=== PATIENT | female | born 1950 | race Caucasian/White ===

== ENCOUNTER 2016-10-07 07:00 | Inpatient (IN) | payer OTHER ==
[~2016-10-07] VITALS: Ht 162.6 cm; Wt 92.5 kg
[2016-10-11] VITALS (24 sets, daily range): BP systolic 105–142; BP diastolic 55–83; PULSE 56–82; RESP 13–25; Ht 162.6 cm; Wt 92.5 kg
[2016-10-11] MEDS ORDERED: TRAZ50TA18 PO (06:11)
[2016-10-11] MEDS ORDERED: SIMV40TA7 PO (06:11)
[2016-10-11] MEDS ORDERED: DOXY50TA9 PO (06:11)
[2016-10-11] MEDS ORDERED: GABA300C16 PO (06:11)
[2016-10-11] MEDS ORDERED: BISO1TAB PO (06:11)
[2016-10-11] MEDS ORDERED: CEFAZOLIN 2 GM/50 ML (PMX) 50 ML IVPB SCH (06:31)
[2016-10-11] MEDS ORDERED: BUPIVACAINE 0.25% (MPF) 10 ML 10 ML VIAL ONE (06:37)
[2016-10-11] MEDS ORDERED: GELATIN SIZE 100 SPONGE ONE (06:37)
[2016-10-11] MEDS ORDERED: POLYMYXIN/BACITRACIN 1L IRRIG ONE (06:38)
[2016-10-11 06:41] LABS: INR 0.91; PARTIAL THROMBOPLASTIN TIME 29.9 Sec (25.0-35.0); PROTIME 12.3 Sec (12.2-14.2)
--- NOTE | 2016-10-11 06:53 | HPN ---
Date/Time of Note Date/Time of Note DATE: 10/11/16 TIME: 06:53 Interval H&P Admission Note Pt. seen H&P reviewed: No system changes TED OLMEDO MD Oct 11, 2016 06:53
[2016-10-11] MEDS ORDERED: FENTAnyl 50 MCG/ML VIAL ONE ×2 (06:55→07:44)
[2016-10-11] MEDS ORDERED: SUCCINYLCHOLINE CHLORIDE 100 MG/5 ML SYG IV ONE (06:55)
[2016-10-11] MEDS ORDERED: MIDAZOLAM 1 MG/ML 2 ML INJ ONE (06:55)
[2016-10-11] MEDS ORDERED: PROPOFOL 100 ML ONE (06:55)
[2016-10-11] MEDS ORDERED: ROCURONIUM 50 MG INJ ONE ×2 (06:55→08:44)
[2016-10-11] MEDS ORDERED: ONDANSETRON 4 MG INJ IV PRN (08:00)
[2016-10-11] MEDS ORDERED: hydrALAzine 20 MG INJ IV PRN (08:00)
[2016-10-11] MEDS ORDERED: METOCLOPRAMIDE 10 MG INJ IV PRN (08:00)
[2016-10-11] MEDS ORDERED: MEPERIDINE 25 MG INJ IV PRN (08:00)
[2016-10-11] MEDS ORDERED: FENTAnyl 50 MCG/ML VIAL IV PRN ×3 (08:00)
[2016-10-11] MEDS ORDERED: HYDROmorphONE (0.2 MG/ML) 10ML SYG IV PRN ×2 (08:00)
[2016-10-11] MEDS ORDERED: LABETALOL HCL 20MG INJ IV PRN (08:00)
[2016-10-11] MEDS ORDERED: ALBUMIN HUMAN 5% 250 ML IV PRN (08:00)
[2016-10-11] MEDS ORDERED: EPHEDrine SULFATE 50 MG/5 ML SYG IV PRN (08:00)
[2016-10-11] MEDS ORDERED: morphine (1 MG/ML) 10ML SYRINGE IV PRN ×3 (08:00)
[2016-10-11] MEDS ORDERED: DIPHENHYDRAMINE 50 MG INJ IV PRN (08:00)
[2016-10-11] MEDS: THROMBIN 5000 UNIT VIAL ONE ×2 (08:04→08:51)
[2016-10-11] MEDS ORDERED: ONDANSETRON 4 MG INJ ONE (08:44)
[2016-10-11] MEDS ORDERED: METOCLOPRAMIDE 10 MG INJ ONE (08:44)
[2016-10-11] MEDS ORDERED: ACETAMINOPHEN 1000MG/100ML IV 100 ML ONE (08:44)
[2016-10-11] MEDS ORDERED: PROPOFOL 40 ML ONE (08:45)
[2016-10-11] MEDS ORDERED: DEXAMETHASONE 4 MG/ML 1 ML INJ ONE (08:45)
[2016-10-11] MEDS ORDERED: EPHEDrine SULFATE 50 MG/5 ML SYG ONE (08:54)
[2016-10-11] MEDS ORDERED: SUGAMMADEX SODIUM 200 MG/2 ML VIAL IV ONE (09:53)
[2016-10-11] MEDS ORDERED: HYDROmorphONE 0.2 MG/ML PCA ONE (10:11)
[2016-10-11] MEDS: HYDROmorphONE (0.2 MG/ML) 10ML SYG IV PRN ×3 (10:12→10:32)
--- NOTE | 2016-10-11 10:27 | OPR ---
Date/Time of Note Date/Time of Note DATE: 10/11/16 TIME: 10:25 Operative Report Preoperative Diagnosis Lumbar spinal stenosis at L2-L3 and L4 Postoperative Diagnosis Same Operation/Procedure Performed Central decompressive laminectomy at L2, L3, L4, and the upper part of L5. Surgeon: TED OLMEDO MD payroll human resources assistant: ELOY MARTIN Anesthesia Type: general Estimated Blood Loss: 100 - 150 ml's Transfusion Required: no Specimens Spinous processes of L2-L3 and L4 Grafts/Implants: none Complications: no TED OLMEDO MD Oct 11, 2016 10:27
[2016-10-11] MEDS ORDERED: HYDROCODONE/APAP (5/325) TAB PO PRN ×2 (10:30)
[2016-10-11] MEDS ORDERED: HYDROmorphONE 0.2 MG/ML PCA IV SCH (10:30)
[2016-10-11] MEDS ORDERED: DIPHENHYDRAMINE 50 MG CAP PO PRN (10:30)
[2016-10-11] MEDS ORDERED: ACETAMINOPHEN 325 MG TAB PO PRN (10:30)
[2016-10-11] MEDS ORDERED: NALOXONE (0.4 MG/ML) INJ IV PRN (10:30)
[2016-10-11] MEDS ORDERED: DIAZEPAM 5 MG TAB PO PRN (10:30)
[2016-10-11] MEDS ORDERED: AL HYDROX/MG HYDROX/SIMETH 30 ML CUP PO PRN (10:30)
[2016-10-11] MEDS ORDERED: PROCHLORPERAZINE 10 MG TAB PO PRN (10:30)
[2016-10-11] MEDS ORDERED: NACL 0.9% 3 ML SYG IV SCH (10:30)
[2016-10-11] MEDS ORDERED: CEPASTAT LOZENGE MT PRN (10:30)
[2016-10-11] MEDS ORDERED: ZOLPIDEM 5 MG TAB PO PRN (10:30)
[2016-10-11] MEDS ORDERED: BETHANECHOL 25 MG TAB PO PRN (10:30)
[2016-10-11] MEDS ORDERED: DIAZEPAM 5 MG/ML SYG IM PRN (10:30)
--- NOTE | 2016-10-11 11:22 | OPR ---
DATE OF OPERATION: 10/11/2016 PREOPERATIVE DIAGNOSIS: Lumbar spinal stenosis at L2, L3 and L4. POSTOPERATIVE DIAGNOSIS: Lumbar spinal stenosis at L2, L3 and L4. OPERATIVE PROCEDURE: 1. Central decompressive laminectomy at L2. 2. Central decompressive laminectomy at L3. 3. Central decompressive laminectomy at L4. 4. Partial central decompressive laminectomy at L5 (superiorly). 5. Medial facetectomy and foraminotomy at L2-3, L3-4, L4-5 bilaterally. 6. Cosmetic wound closure (16 cm). 7. Lateral localized lumbar radiographs (2). 8. Intraoperative nerve monitoring (2.5 hours). SURGEON: Rigo Doe MD INDUSTRIAL LABORER: Akanksha Siegel PA-C ANESTHESIA: General endotracheal by Dr. Fisher. ESTIMATED BLOOD LOSS: 150 mL - none replaced. DRAINS: Two medium Hemovac drains employed. COMPLICATIONS: No complications. PERTINENT HISTORY AND PHYSICAL: This is a 66-year-old female who sustained an injury to her back in the course of her employment on 05/23/2015. She had extensive care since that time and has remained symptomatic with persistent back and lower extremity complaints bilaterally, right greater than left, which have been unrelieved by conservative management. She has undergone a number of diagnostic studies including an MRI of the lumbar spine which demonstrated marked canal stenosis at L2, L3 and L4. Treatment options were discussed with the patient, she elected to go with surgery. OPERATIVE FINDINGS AT SURGERY: Moderately severe central stenosis at L2, L3 and L4 was confirmed. The baseline intraoperative nerve monitor revealed a decrease in the L2 potential on the right of 30 percent, the L3 potential on the right of 50 percent, the L3 potential on the left of 20 percent, the L4 potential on the right of 40 percent. These all returned to normal at the completion of the surgery. OPERATIVE PROCEDURE: With the patient in supine position, after satisfactory induction of general endotracheal anesthesia by Dr. Fisher, the patient was turned to the prone kneeling position onto the [place] frame. All pressure points were carefully padded. The back was prepped and draped in usual sterile fashion. Athrombic pumps were applied to the legs below the knees for venous stasis during and after the procedure. An indwelling Garner catheter was also placed preoperative to facilitate bladder drainage during and after the procedure. Two spinal needles were placed next to the L2 and L4 spinous processes, lateral radiograph were taken which confirmed anatomic localization. A 16 cm incision was made from L2 to L5 through skin and subcutaneous tissue to the deep fascia after the skin was infiltrated with 0.25 percent Marcaine without epinephrine for postoperative analgesia. Superficial retractors were placed and hemostasis was achieved with electrocautery. Throughout the procedure, copious amounts of antibacterial irrigating solution was used to periodically irrigate the wound. The fascia was incised in midline with a hot knife and a bilateral subperiosteal dissection carried out from L2 to L5. Deep retractors were placed and deep hemostasis secured with electrocautery. A second intraoperative radiograph was taken with Lois clamps placed and was felt to be the spinous process of L3, L4, and L5 and this was confirmed with a second x-ray. A central decompressive laminectomy at L2, L3 and L4 was then carried out using a Irina right angle bone rongeur, Leksell rongeur, Kerrison punches and curettes. Ligamentum flavum was excised with sharp dissection. The operating microscope was then moved into place. A medial facetectomy and foraminotomy at L2-3 L3-4 and L4-5 was carried out using a small hand osteotome and mallet, Kerrison punches and curettes. At this point, there was felt to be some compression of the dural sac and the exiting L5 nerve roots, and the upper part of L5 was then removed using Kerrison punches and curettes. The epidural hemostasis was secured with bipolar electrocautery on a low setting. The anesthesiologist was then asked to perform a Valsalva maneuver to 40 mmHg and no spinal fluid leak was noted. The wound was then closed in layers over 2 medium Hemovac drains, 1 below the fascia and 1 above the fascia using number 1 Stratafix sutures on deep paraspinal musculature and deep fascia of the back, 2-0 Stratafix sutures in subcu tissue and a 4-0 Vicryl subcuticular cosmetic closing suture on the skin. Dermabond and sterile compressive dressings were applied. The patient tolerated the procedure well. She was then turned onto the supine position onto her bed and extubated by Dr. Fisher. She was transported to the recovery room in satisfactory condition. At the conclusion of the procedure, sponge, instrument and needle counts were all correct. NEED FOR INFORMATION SERVICES ASSISTANT: During this spinal surgical procedure, my assistant professor of geography was used to retract and protect the spinal nerves and dural sac. My assistant professor of geography also employed the suction catheters to evacuate blood from the surgical field to improve visualization of the neural structures. The assistant professor of geography was medically necessary to facilitate the completion of the surgery in a safe and expeditious manner. [facility] [place] regulations, as well as hospital bylaws, preclude the use of non- licensed health care personnel such as operating room technicians, to perform these functions. Throughout the procedure, neuro monitoring was carried out by [employer] including EMG, SSEP and MEP monitoring of the L2, L3, L4, L5 and S1 nerve roots bilaterally, along with spinal cord potentials. These were interpreted by a neurologist employed by [employer]. Dictated By: Rigo Doe MD /rosalina/maria /Document#: [id number] CC: Pb Crawford MD;*EndCC* MTDD
[2016-10-11] MEDS: DEXTROSE 5%-0.45% NACL 1,000 ML IV SCH ×2 (11:33→22:16)
[2016-10-11] MEDS: CEFAZOLIN 1 GM/50 ML (PMX) 50 ML IVPB SCH ×3 (12:27→23:54)
[2016-10-11] MEDS ORDERED: BISOPROLOL PO SCH (12:30)
[2016-10-11] MEDS ORDERED: HCTZ PO SCH (12:30)
[2016-10-11] MEDS ORDERED: BISOPROLOL 5 MG TAB PO SCH (15:00)
[2016-10-11] MEDS ORDERED: HYDROCHLOROTHIAZIDE 12.5 MG CAP PO SCH (15:00)
--- NOTE | 2016-10-11 15:34 | RADRPT ---
PROCEDURE: XR Lumbar Spine one view. CLINICAL INDICATION: Low back pain. Intraoperative. TECHNIQUE: Prone portable cross-table lateral. COMPARISON: No prior studies are available for comparison. FINDINGS: For the purposes of this report, the last apparent true disc level is considered to be L5-S1. Based on this, the posterior markers are present the L3 spinous process level and L5 spinous proces s level. IMPRESSION: 1. Intraoperative imaging as described above. RPTAT: QQ .Bear Neal MD, Date Time Electronically viewed and signed by .Bear Neal MD, on 10/11/2016 15:33 .R/
--- NOTE | 2016-10-11 15:35 | RADRPT ---
PROCEDURE: XR Lumbar Spine one view. CLINICAL INDICATION: Low back pain. Intraoperative. TECHNIQUE: Prone portable cross-table lateral. COMPARISON: Prior study done earlier the same day. FINDINGS: For the purposes of this report, the last apparent true disc level is considered to be L5-S1. Based on this, the posterior surgical instruments are present at the L3, L4, and L5 spinous process level s. IMPRESSION: 1. Intraoperative imaging as described above. RPTAT: QQ .Bear Neal MD, Date Time Electronically viewed and signed by .Bear Neal MD, on 10/11/2016 15:34 .R/
[2016-10-11] MEDS ORDERED: SPECIAL NON-STANDARD MEDICATION PO SCH (16:00)
[2016-10-11] MEDS: ONDANSETRON 4 MG INJ IV PRN ×2 (16:53→23:02)
[2016-10-11] MEDS: TRIMETHOBENZAMIDE 100 MG/ML VIAL IM PRN (19:20)
--- NOTE | 2016-10-11 19:48 | CONS ---
DATE OF ADMISSION: 10/11/2016 DATE OF CONSULTATION: 10/11/[address] Doe for allowing us to participate in the medical management of this patient. REASON FOR CONSULTATION: To manage the patient's hypertension, hyperlipidemia. HISTORY OF PRESENT ILLNESS: This 66-year-old female is now postop a lumbar spine surgery by Dr. Doe. The patient underwent a central decompressive laminectomy at L2, L3, and L4 with partial central decompressive laminectomy at L5. The patient had a preop diagnosis of lumbar spine stenosis. The patient said that she was having low back pain which was radiating mostly down her right leg. She had developed a foot drop and she had fallen several times. She also had some pain going down the left leg. The patient was seen preoperatively by Dr. Laura Gould, one of my partners. She was cleared by Dr. Gould. He has a detailed note on her chart. PAST MEDICAL HISTORY: The patient has a past medical history of hypertension, hyperlipidemia, rosacea, and spinal stenosis. PRE-SURGICAL HISTORY: Left meniscus repair, left ankle tendon repair, right rotator cuff repair, hysterectomy, oophorectomy. MEDICATION: Medications include the followin. Gabapentin 300 mg at night. 2. Trazodone 50 mg at bedtime. 3. Simvastatin 40 mg a day. 4. Bisoprolol/hydrochlorothiazide 2.5/6.25 mg once nightly, doxycycline 50 mg a day. ALLERGIES: PENICILLIN. FAMILY HISTORY: Father age 91. Mother age 48. Mother with a pulmonary embolism. SOCIAL HISTORY: The patient does not smoke. Does not use illicit drugs. Rarely drinks alcohol. PHYSICAL EXAMINATION: Physical examination at this time reveals a well-developed female in no apparent distress. She is awake and alert. VITAL SIGNS: Blood pressure 134/62, O2 saturation 97 percent. Pulse of 67. HEENT: Head normocephalic. Eyes, extraocular muscles intact. Nose and mouth are normal. NECK: Supple. No neck vein distention. LUNGS: Clear to auscultation. HEART: Regular rhythm. There is a 2/6 systolic ejection murmur. The patient says she has known of the heart murmur previously. ABDOMEN: Soft, nontender. No masses or megaly. EXTREMITIES: No peripheral edema. IMPRESSION: This patient is now postop a lumbar spine surgery. She is doing well. Her blood pressure is under good control. I will manage the patient's hypertension, hyperlipidemia, rosacea. PLAN: 1. Resume routine medications. 2. Check labs in the morning. 3. Postop lumbar spine surgery protocol. 4. I will follow the patient along with you. Dictated By: Pb Crawford MD /rosalina/julian /Document#: [id number]
[2016-10-11] MEDS: traZODone 50 MG TAB PO SCH (21:00)
[2016-10-11] MEDS: BISOPROLOL PO SCH (21:04)
[2016-10-11] MEDS: GABAPENTIN 300 MG CAP PO SCH (21:04)
[2016-10-11] MEDS: ATORVASTATIN 20 MG TAB PO SCH (21:04)
[2016-10-11] MEDS: RANITIDINE 150 MG TAB PO SCH (21:04)
[2016-10-11] MEDS: HCTZ PO SCH (21:04)
[2016-10-12 00:07] VITALS: BP 126/74; RESP 18
[2016-10-12] MEDS: ONDANSETRON 4 MG INJ IV PRN (05:02)
[2016-10-12 05:10] VITALS: BP 129/58; PULSE 55; RESP 20
[2016-10-12 05:14] LABS: ABNORMAL IP MESSAGE 1; BASOPHILS % 0.1 % (0.0-2.0); HEMATOCRIT 36.4 % (37.0-47.0); HEMOGLOBIN 12.3 g/dl (12.0-16.0); LYMPHOCYTES # 1.6 10^3/ul (0.8-2.9); LYMPHOCYTES % 6.7 % (15.0-51.0); MEAN CORPUSCULAR HEMOGLOBIN 29.1 pg (29.0-33.0); MEAN CORPUSCULAR HGB CONC 33.8 g/dl (32.0-37.0); MEAN CORPUSCULAR VOLUME 86.1 fl (82.0-101.0); MEAN PLATELET VOLUME 10.2 fl (7.4-10.4); MONOCYTES % 8.4 % (0.0-11.0); NEUTROPHILS % 83.8 % (39.0-77.0); PLATELET COUNT 302 10^3/UL (140-415); RED BLOOD COUNT 4.23 10^6/ul (4.20-5.40); RED CELL DISTRIBUTION WIDTH 13.9 % (11.5-14.5); WHITE BLOOD COUNT 24.1 10^3/ul (4.8-10.8)
[2016-10-12 05:20] LABS: POSITIVE DIFF @See below
[2016-10-12 05:41] LABS: ALBUMIN 3.4 g/dl (3.3-4.9); ALBUMIN/GLOBULIN RATIO 1.47; BILIRUBIN,INDIRECT 0.3 mg/dl (0-1.1); BILIRUBIN,TOTAL 0.3 mg/dl (0.2-1.3); CALCIUM 8.9 mg/dl (8.4-10.2); CREATININE 0.67 mg/dl (0.44-1.00); POTASSIUM 4.1 mmol/L (3.5-5.1); TOTAL PROTEIN 5.7 g/dl (6.1-8.1)
[2016-10-12] MEDS: CEFAZOLIN 1 GM/50 ML (PMX) 50 ML IVPB SCH (06:07)
--- NOTE | 2016-10-12 07:12 | PN ---
Date/Time of Note Date/Time of Note DATE: 10/12/16 TIME: 07:10 Assessment/Plan Lines/Catheters IV Catheter Type (from Nrsg): Peripheral IV Garner in Place (from Nrsg): Yes Subjective 24 Hr Interval Summary The patient is postop day #1 following a multilevel decompressive laminectomy from L2 through L4. She had significant nausea and vomiting last night from the INSTRUCTIONAL MATERIALS DIRECTOR and has elected not to use any pain medication at this time. Neurovascular structures are intact distally. Her Hemovac output was 40 cc from midnight to 6 AM, and will be observed at this time. She will be mobilized as tolerated by physical therapy. Her a.m. labs demonstrated a hyponatremia (131), and a significantly elevated white blood cell count (24). I will defer to Dr. Hughes regarding the management of her hyponatremia and leukocytosis. Exam/Review of Systems Vital Signs Vitals Vital Signs Date Time Temp Pulse Resp B/P Pulse Ox O2 Delivery O2 Flow Rate FiO2 10/12/16 05:10 19 10/12/16 05:10 98.8 55 129/58 97 Nasal Cannula 2.0 Intake and Output 10/11/16 10/11/16 10/12/16 15:00 23:00 07:00 Intake Total 1950 ml 1550 ml 750 ml Output Total 410 ml 720 ml 40 ml Balance 1540 ml 830 ml 710 ml Results Result Diagram: 10/12/16 0444 10/12/16 0444 TED OLMEDO MD Oct 12, 2016 07:11
[2016-10-12 07:51] VITALS: BP 143/68; RESP 18
[2016-10-12] MEDS ORDERED: BETHANECHOL 25 MG TAB PO PRN (08:00)
--- NOTE | 2016-10-12 08:09 | CONS ---
Date/Time of Note Date/Time of Note DATE: 10/12/16 TIME: 08:07 Assessment/Plan Assessment/Plan Chief Complaint/Hosp Course 1. She is 1 day postop a lumbar spine surgery. 2. Nausea and vomiting due to Dilaudid pain medication. 3. White blood count of 24,000 which is probably elevated because of dexamethasone that she received during surgery. She has no obvious evidence of infection. 4. We will check labs in the morning. 5. Continue current medication. Physical therapy as tolerated. Problems: Consultation Date/Type/Reason Admit Date/Time Oct 11, 2016 at 05:12 Initial Consult Date 24 HR Interval Summary Free Text/Dictation She is having some nausea with vomiting. She thinks it is due to the Dilaudid she is getting through the BUTTON TUFTING MACHINE OPERATOR for pain. She denies cough. Exam/Review of Systems Vital Signs Vitals Vital Signs Date Time Temp Pulse Resp B/P Pulse Ox O2 Delivery O2 Flow Rate FiO2 10/12/16 07:51 98.9 66 18 143/68 98 10/12/16 05:10 Nasal Cannula 2.0 Intake and Output 10/11/16 10/11/16 10/12/16 15:00 23:00 07:00 Intake Total 1950 ml 1550 ml 1050 ml Output Total 410 ml 720 ml 2150 ml Balance 1540 ml 830 ml -1100 ml Exam Constitutional: alert, oriented, well developed Respiratory: clear to auscultation, normal air movement Cardiovascular: regular rate and rhythm Gastrointestinal: non-tender, soft Musculoskeletal: nl extremities to inspection Results Result Diagram: 10/12/16 0444 10/12/16 0444 Results 24 hrs Laboratory Tests Test 10/12/16 04:44 White Blood Count 24.1 H Red Blood Count 4.23 Hemoglobin 12.3 Hematocrit 36.4 L Mean Corpuscular Volume 86.1 Mean Corpuscular Hemoglobin 29.1 Mean Corpuscular Hemoglobin Concent 33.8 Red Cell Distribution Width 13.9 Platelet Count 302 Mean Platelet Volume 10.2 Neutrophils % 83.8 H Lymphocytes % 6.7 L Monocytes % 8.4 Eosinophils % 0.0 Basophils % 0.1 Nucleated Red Blood Cells % 0.0 Neutrophils # (Manual) 20 H Lymphocytes # 1.6 Monocytes # 2.0 H Eosinophils # 0.0 Basophils # 0.0 Nucleated Red Blood Cells # 0.0 Sodium Level 131 L Potassium Level 4.1 Chloride Level 96 L Carbon Dioxide Level 27 Anion Gap 12 Blood Urea Nitrogen 12 Creatinine 0.67 Glucose Level 152 Calcium Level 8.9 Total Bilirubin 0.3 Direct Bilirubin 0.00 Indirect Bilirubin 0.3 Aspartate Amino Transf (AST/SGOT) 25 Alanine Aminotransferase (ALT/SGPT) 35 Alkaline Phosphatase 66 Total Protein 5.7 L Albumin 3.4 Globulin 2.30 Albumin/Globulin Ratio 1.47 Medications Medications Current Medications Dextrose/Sodium Chloride (D5-1/2ns) 1,000 ml @ 100 mls/hr Q10H IV Last administered on 10/11/16 22:16; Admin Dose 100 MLS/HR; Start 10/11/16 at 10:20 Acetaminophen/ Hydrocodone Bitart ([place] (5/325)) 1 tab Q4H PRN PO PAIN LEVEL 1 -5; Start 10/11/16 at 10:30; Status Future Hold Acetaminophen/ Hydrocodone Bitart ([place] (5/325)) 2 tab Q4H PRN PO PAIN LEVEL 6 -10; Start 10/11/16 at 10:30; Status Future Hold Zolpidem Tartrate (Ambien) 5 mg HS PRN PO INSOMNIA; Start 10/11/16 at 10:30 Prochlorperazine (Compazine) 10 mg Q4H PRN PO NAUSEA AND/OR VOMITING; Start at 10:30 Trimethobenzamide HCl (Tigan) 200 mg Q4H PRN IM NAUSEA AND/OR VOMITING Last administered on 10/11/16 19:20; Admin Dose 200 MG; Start 10/11/16 at 10:30 Ondansetron HCl (Zofran Inj) 4 mg Q6H PRN IV NAUSEA AND/OR VOMITING Last administered on 10/12/16 05:02; Admin Dose 4 MG; Start 10/11/16 at 10:30 Al Hydrox/Mg Hydrox/Simethicone (Mag-Al Plus) 15 ml Q4H PRN PO CONSTIPATION; Start 10/11/16 at 10:30 Docusate Sodium (Colace) 100 mg BID PO ; Start 10/12/16 at 09:00 Acetaminophen (Tylenol Tab) 650 mg Q4H PRN PO TEMP GREATER THAN 101F OR SZYMANSKI; Start 10/11/16 at 10:30 Ascorbic Acid (Vitamin C) 1,000 mg BID PO ; Start 10/12/16 at 09:00 Ferrous Sulfate (Ferrous Sulfate (Ec)) 325 mg TID PO ; Start 10/12/16 at 09:00 Ranitidine HCl (Zantac) 150 mg BID PO Last administered on 10/11/16 21:04; Admin Dose 150 MG; Start 10/11/16 at 21:00 Diazepam (Valium) 5 mg Q4H PRN PO MUSCLE SPASMS; Start 10/11/16 at 10:30 Diazepam (Valium) 5 mg Q4H PRN IM MUSCLE SPASMS; Start 10/11/16 at 10:30 Phenol (Cepastat Lozenge) 1 lozenge PRN PRN MT SORE THROAT; Start 10/11/16 at 10:30 Bethanechol Chloride (Urecholine) 25 mg PRN PRN PO UNABLE TO VOID; Start at 10:30 Diphenhydramine HCl (Benadryl) 50 mg Q6H PRN PO PRURITUS; Start 10/11/16 at 10: 30 Hydromorphone HCl (Dilaudid BUTTON TUFTING MACHINE OPERATOR) Q4PCA IV Last administered on 10/11/16 10:38 ; Admin Dose 6 MG; Start 10/11/16 at 10:30 Naloxone HCl (Narcan) 0.2 mg Q2M PRN IV RR 8 BREATHS/MIN OR LESS; Start at 10:30 Gabapentin (Neurontin) 300 mg HS PO Last administered on 10/11/16 21:04; Admin Dose 300 MG; Start 10/11/16 at 21:00 Trazodone HCl (Desyrel) 50 mg QHS PO ; Start 10/11/16 at 21:00 Doxycycline Hyclate (Vibramycin) 50 mg DAILY PO ; Start 10/12/16 at 09:00 Atorvastatin Calcium (Lipitor) 20 mg DAILY@21 PO Last administered on 21:04; Admin Dose 20 MG; Start 10/11/16 at 21:00 Bisoprolol Fumarate/HCTZ (Ziac (2.5/6.25)) 1 tab DAILY PO Last administered on 10/11/16 21:04; Admin Dose 1 TAB; Start 10/11/16 at 19:30 Bethanechol Chloride (Urecholine) 25 mg PRN PRN PO UNABLE TO VOID; Start at 08:00 MITCHELL WALLS MD Oct 12, 2016 08:09
[2016-10-12] MEDS: DEXTROSE 5%-0.45% NACL 1,000 ML IV SCH ×2 (08:25→15:57)
[2016-10-12] MEDS: ASCORBIC ACID 500 MG TAB PO SCH ×2 (08:29→20:26)
[2016-10-12] MEDS: FERROUS SULFATE (EC) 325 MG TAB PO SCH ×3 (08:29→20:26)
[2016-10-12] MEDS: DOCUSATE SODIUM 100 MG CAP PO SCH ×2 (08:29→20:25)
[2016-10-12] MEDS: DOXYCYCLINE 100 MG TAB PO SCH (08:30)
[2016-10-12] MEDS: RANITIDINE 150 MG TAB PO SCH ×2 (08:30→20:26)
[2016-10-12] MEDS: BISOPROLOL PO SCH (08:31)
[2016-10-12] MEDS: HCTZ PO SCH (08:31)
[2016-10-12 11:22] LABS: ADD UMIC NO; UR ASCORBIC ACID NEGATIVE (NEGATIVE); UR BILIRUBIN (Dip) NEGATIVE (NEGATIVE); UR BLOOD (Dip) NEGATIVE (NEGATIVE); UR CLARITY SLIGHTLY CLOUDY (CLEAR); UR COLOR YELLOW (YELLOW); UR GLUCOSE (Dip) NEGATIVE (NEGATIVE); UR KETONES (Dip) NEGATIVE (NEGATIVE); UR LEUKOCYTE ESTERASE (Dip) NEGATIVE Leu/ul (NEGATIVE); UR MUCUS FEW /HPF (NONE SEEN); UR NITRITE (Dip) NEGATIVE (NEGATIVE); UR RBC 3 /HPF (0-5); UR TOTAL PROTEIN (Dip) NEGATIVE (NEGATIVE); UR UROBILINOGEN (Dip) NEGATIVE (NEGATIVE)
[2016-10-12] MEDS: OXYCODONE/ACETAMINOPHEN (5/325) TAB PO PRN ×2 (13:58→18:17)
[2016-10-12 14:00] VITALS: BP 115/54; RESP 20
[2016-10-12 20:16] VITALS: BP 117/56; RESP 18
[2016-10-12] MEDS: GABAPENTIN 300 MG CAP PO SCH (20:26)
[2016-10-12] MEDS: ATORVASTATIN 20 MG TAB PO SCH (20:26)
[2016-10-12] MEDS: traZODone 50 MG TAB PO SCH (20:26)
[2016-10-12] MEDS: OXYCODONE/ACETAMINOPHEN (10/325) TAB PO PRN (23:11)
[2016-10-13] MEDS: DEXTROSE 5%-0.45% NACL 1,000 ML IV SCH ×3 (02:20→22:20)
[2016-10-13] MEDS: OXYCODONE/ACETAMINOPHEN (10/325) TAB PO PRN (04:26)
[2016-10-13 05:23] LABS: ABNORMAL IP MESSAGE 1; BASOPHILS % 0.2 % (0.0-2.0); EOSINOPHILS % 0.3 % (0.0-7.0); HEMATOCRIT 38.6 % (37.0-47.0); HEMOGLOBIN 12.2 g/dl (12.0-16.0); LYMPHOCYTES # 2.8 10^3/ul (0.8-2.9); LYMPHOCYTES % 17.5 % (15.0-51.0); MEAN CORPUSCULAR HEMOGLOBIN 27.5 pg (29.0-33.0); MEAN CORPUSCULAR HGB CONC 31.6 g/dl (32.0-37.0); MEAN CORPUSCULAR VOLUME 86.9 fl (82.0-101.0); MEAN PLATELET VOLUME 10.3 fl (7.4-10.4); MONOCYTES % 12.8 % (0.0-11.0); NEUTROPHILS % 68.4 % (39.0-77.0); PLATELET COUNT 265 10^3/UL (140-415); RED BLOOD COUNT 4.44 10^6/ul (4.20-5.40); RED CELL DISTRIBUTION WIDTH 14.4 % (11.5-14.5)
[2016-10-13 05:32] LABS: POSITIVE DIFF @See below
--- NOTE | 2016-10-13 06:44 | PN ---
Date/Time of Note Date/Time of Note DATE: 10/13/16 TIME: 06:43 Assessment/Plan Lines/Catheters IV Catheter Type (from [facility]): Peripheral IV Garner in Place (from [facility]): No (dc'd at 1040am today.) Subjective 24 Hr Interval Summary The patient is postop day #2 following a multilevel decompressive laminectomy. She is afebrile. She is resting comfortably in bed. Neurovascular structures are intact distally. Her white blood count is now 16, down from 24 yesterday. I anticipate she will be cleared for discharge by physical therapy, and I given her strict discharge precautions and instructions as well as follow-up arrangements. Exam/Review of Systems Vital Signs Vitals Vital Signs Date Time Temp Pulse Resp B/P Pulse Ox O2 Delivery O2 Flow Rate FiO2 10/12/16 20:16 98.6 70 18 117/56 98 10/12/16 05:10 Nasal Cannula 2.0 Intake and Output 10/12/16 10/12/16 10/13/16 15:00 23:00 07:00 Intake Total 300 ml 880 ml 1150 ml Output Total 20 ml 750 ml 1200 ml Balance 280 ml 130 ml -50 ml Results Result Diagram: 10/13/16 0437 10/12/16 0444 TED OLMEDO MD Oct 13, 2016 06:44
[2016-10-13 06:51] LABS: ALBUMIN 3.2 g/dl (3.3-4.9); ALBUMIN/GLOBULIN RATIO 1.14; BILIRUBIN,INDIRECT 0.4 mg/dl (0-1.1); BILIRUBIN,TOTAL 0.4 mg/dl (0.2-1.3); CREATININE 0.7 mg/dl (0.44-1.00); POTASSIUM 4.6 mmol/L (3.5-5.1)
[2016-10-13 07:00] VITALS: BP 130/85; RESP 18
[2016-10-13] MEDS: RANITIDINE 150 MG TAB PO SCH ×2 (08:10→21:09)
[2016-10-13] MEDS: ASCORBIC ACID 500 MG TAB PO SCH ×2 (08:10→21:08)
[2016-10-13] MEDS: DOCUSATE SODIUM 100 MG CAP PO SCH ×2 (08:10→21:08)
[2016-10-13] MEDS: FERROUS SULFATE (EC) 325 MG TAB PO SCH ×3 (08:11→21:09)
[2016-10-13] MEDS: BISOPROLOL PO SCH (08:12)
[2016-10-13] MEDS: DOXYCYCLINE 100 MG TAB PO SCH (08:12)
[2016-10-13] MEDS: HCTZ PO SCH (08:12)
[2016-10-13] MEDS: ONDANSETRON 4 MG INJ IV PRN ×2 (09:56→18:24)
[2016-10-13] MEDS: OXYCODONE/ACETAMINOPHEN (5/325) TAB PO PRN ×2 (13:40→18:25)
[2016-10-13] MEDS: TRIMETHOBENZAMIDE 100 MG/ML VIAL IM PRN (18:35)
--- NOTE | 2016-10-13 19:12 | CONS ---
Date/Time of Note Date/Time of Note DATE: 10/13/16 TIME: 19:11 Assessment/Plan Assessment/Plan Chief Complaint/Hosp Course 1. She is 1 day postop a lumbar spine surgery. 2. Nausea and vomiting due to Dilaudid pain medication. 3. White blood count of 24,000 which is probably elevated because of dexamethasone that she received during surgery. She has no obvious evidence of infection. 4. We will check labs in the morning. 5. Continue current medication. Physical therapy as tolerated. Problems: Consultation Date/Type/Reason Admit Date/Time Oct 11, 2016 at 05:12 24 HR Interval Summary Free Text/Dictation She is now 2 days post op a lumbar spine surgery . She was nauseated earlier but is feeling better now . Exam/Review of Systems Vital Signs Vitals Vital Signs Date Time Temp Pulse Resp B/P Pulse Ox O2 Delivery O2 Flow Rate FiO2 10/13/16 07:00 98.9 57 18 130/85 98 10/12/16 05:10 Nasal Cannula 2.0 Intake and Output 10/12/16 10/12/16 10/13/16 15:00 23:00 07:00 Intake Total 300 ml 880 ml 1150 ml Output Total 20 ml 750 ml 1200 ml Balance 280 ml 130 ml -50 ml Results Result Diagram: 10/13/16 0437 10/13/16 0437 Results 24 hrs Laboratory Tests Test 10/13/16 04:37 White Blood Count 16.0 #H Red Blood Count 4.44 Hemoglobin 12.2 Hematocrit 38.6 Mean Corpuscular Volume 86.9 Mean Corpuscular Hemoglobin 27.5 L Mean Corpuscular Hemoglobin Concent 31.6 L Red Cell Distribution Width 14.4 Platelet Count 265 Mean Platelet Volume 10.3 Neutrophils % 68.4 Lymphocytes % 17.5 Monocytes % 12.8 H Eosinophils % 0.3 Basophils % 0.2 Nucleated Red Blood Cells % 0.0 Neutrophils # (Manual) 11 H Lymphocytes # 2.8 Monocytes # 2.0 H Eosinophils # 0.0 Basophils # 0.0 Nucleated Red Blood Cells # 0.0 Sodium Level 140 Potassium Level 4.6 Chloride Level 98 Carbon Dioxide Level 32 H Anion Gap 15 Blood Urea Nitrogen 17 Creatinine 0.70 Glucose Level 90 # Calcium Level 9.0 Total Bilirubin 0.4 Direct Bilirubin 0.00 Indirect Bilirubin 0.4 Aspartate Amino Transf (AST/SGOT) 23 Alanine Aminotransferase (ALT/SGPT) 30 Alkaline Phosphatase 72 Total Protein 6.0 L Albumin 3.2 L Globulin 2.80 Albumin/Globulin Ratio 1.14 Medications Medications Current Medications Dextrose/Sodium Chloride (D5-1/2ns) 1,000 ml @ 100 mls/hr Q10H IV Last administered on 10/11/16 22:16; Admin Dose 100 MLS/HR; Start 10/11/16 at 10:20 Zolpidem Tartrate (Ambien) 5 mg HS PRN PO INSOMNIA; Start 10/11/16 at 10:30 Prochlorperazine (Compazine) 10 mg Q4H PRN PO NAUSEA AND/OR VOMITING; Start at 10:30 Trimethobenzamide HCl (Tigan) 200 mg Q4H PRN IM NAUSEA AND/OR VOMITING Last administered on 10/13/16 18:35; Admin Dose 200 MG; Start 10/11/16 at 10:30 Ondansetron HCl (Zofran Inj) 4 mg Q6H PRN IV NAUSEA AND/OR VOMITING Last administered on 10/13/16 09:56; Admin Dose 4 MG; Start 10/11/16 at 10:30 Al Hydrox/Mg Hydrox/Simethicone (Mag-Al Plus) 15 ml Q4H PRN PO CONSTIPATION; Start 10/11/16 at 10:30 Docusate Sodium (Colace) 100 mg BID PO Last administered on 10/13/16 08:10; Admin Dose 100 MG; Start 10/12/16 at 09:00 Acetaminophen (Tylenol Tab) 650 mg Q4H PRN PO TEMP GREATER THAN 101F OR SZYMANSKI; Start 10/11/16 at 10:30 Ascorbic Acid (Vitamin C) 1,000 mg BID PO Last administered on 10/13/16 08:10 ; Admin Dose 1,000 MG; Start 10/12/16 at 09:00 Ferrous Sulfate (Ferrous Sulfate (Ec)) 325 mg TID PO Last administered on 13:39; Admin Dose 325 MG; Start 10/12/16 at 09:00 Ranitidine HCl (Zantac) 150 mg BID PO Last administered on 10/13/16 08:10; Admin Dose 150 MG; Start 10/11/16 at 21:00 Diazepam (Valium) 5 mg Q4H PRN PO MUSCLE SPASMS; Start 10/11/16 at 10:30 Diazepam (Valium) 5 mg Q4H PRN IM MUSCLE SPASMS; Start 10/11/16 at 10:30 Phenol (Cepastat Lozenge) 1 lozenge PRN PRN MT SORE THROAT; Start 10/11/16 at 10:30 Bethanechol Chloride (Urecholine) 25 mg PRN PRN PO UNABLE TO VOID Last administered on 10/12/16 11:27; Admin Dose 25 MG; Start 10/11/16 at 10:30 Diphenhydramine HCl (Benadryl) 50 mg Q6H PRN PO PRURITUS; Start 10/11/16 at 10: 30 Hydromorphone HCl (Dilaudid CRATE OPENER) Q4PCA IV Last administered on 10/11/16 10:38 ; Admin Dose 6 MG; Start 10/11/16 at 10:30 Naloxone HCl (Narcan) 0.2 mg Q2M PRN IV RR 8 BREATHS/MIN OR LESS; Start at 10:30 Gabapentin (Neurontin) 300 mg HS PO Last administered on 10/12/16 20:26; Admin Dose 300 MG; Start 10/11/16 at 21:00 Trazodone HCl (Desyrel) 50 mg QHS PO Last administered on 10/12/16 20:26; Admin Dose 50 MG; Start 10/11/16 at 21:00 Doxycycline Hyclate (Vibramycin) 50 mg DAILY PO Last administered on 10/13/16 08:12; Admin Dose 50 MG; Start 10/12/16 at 09:00 Atorvastatin Calcium (Lipitor) 20 mg DAILY@21 PO Last administered on 20:26; Admin Dose 20 MG; Start 10/11/16 at 21:00 Bisoprolol Fumarate/HCTZ (Ziac (2.5/6.25)) 1 tab DAILY PO Last administered on 10/13/16 08:12; Admin Dose 1 TAB; Start 10/11/16 at 19:30 Bethanechol Chloride (Urecholine) 25 mg PRN PRN PO UNABLE TO VOID; Start at 08:00 Oxycodone/ Acetaminophen (Percocet (5/ 325)) 1 tab Q4H PRN PO PAIN Last administered on 10/13/16 18:25; Admin Dose 1 TAB; Start 10/12/16 at 12:30 Oxycodone/ Acetaminophen (Endocet ()) 1 tab Q4H PRN PO PAIN Last administered on 10/13/16 04:26; Admin Dose 1 TAB; Start 10/12/16 at 12:30 MITCHELL WALLS MD Oct 13, 2016 19:12
[2016-10-13 20:17] VITALS: BP 127/57; RESP 20
[2016-10-13] MEDS: ATORVASTATIN 20 MG TAB PO SCH (21:09)
[2016-10-13] MEDS: GABAPENTIN 300 MG CAP PO SCH (21:09)
[2016-10-13] MEDS: traZODone 50 MG TAB PO SCH (21:11)
[2016-10-14 01:56] VITALS: BP 132/72; RESP 18
[2016-10-14] MEDS: OXYCODONE/ACETAMINOPHEN (10/325) TAB PO PRN (06:32)
--- NOTE | 2016-10-14 07:19 | PN ---
Date/Time of Note Date/Time of Note DATE: 10/14/16 TIME: 07:17 Assessment/Plan Lines/Catheters IV Catheter Type (from Nrsg): Saline Lock Garner in Place (from Nrsg): No Subjective 24 Hr Interval Summary The patient is postop day #3 following a multilevel decompressive lumbar laminectomy. She is resting comfortably in bed. Neurovascular structures are intact distally. Physical therapy walked with her yesterday, but was unable to clear her due to not achieving stairclimbing capability. It is anticipated that she will be cleared for discharge later today by physical therapy. She was given strict discharge precautions and instructions as well as follow-up arrangements. Exam/Review of Systems Vital Signs Vitals Vital Signs Date Time Temp Pulse Resp B/P Pulse Ox O2 Delivery O2 Flow Rate FiO2 10/14/16 01:56 98.0 82 18 132/72 94 10/13/16 20:30 Room Air 10/12/16 05:10 2.0 Intake and Output 10/13/16 10/13/16 10/14/16 15:00 23:00 07:00 Intake Total 1480 ml 960 ml Output Total 1200 ml Balance 280 ml 960 ml Results Result Diagram: 10/13/16 0437 10/13/16 0437 TED OLMEDO MD Oct 14, 2016 07:19
[2016-10-14 07:56] VITALS: BP 118/58; RESP 18
[2016-10-14] MEDS: ASCORBIC ACID 500 MG TAB PO SCH ×2 (08:34→20:36)
[2016-10-14] MEDS: DOCUSATE SODIUM 100 MG CAP PO SCH ×2 (08:34→20:37)
[2016-10-14] MEDS: DOXYCYCLINE 100 MG TAB PO SCH (08:35)
[2016-10-14] MEDS: FERROUS SULFATE (EC) 325 MG TAB PO SCH ×2 (08:35→20:37)
[2016-10-14] MEDS: RANITIDINE 150 MG TAB PO SCH ×2 (08:37→20:36)
[2016-10-14] MEDS: HCTZ PO SCH (08:37)
[2016-10-14] MEDS: BISOPROLOL PO SCH (08:37)
--- NOTE | 2016-10-14 09:07 | CONS ---
Date/Time of Note Date/Time of Note DATE: 10/14/16 TIME: 09:01 Assessment/Plan Assessment/Plan Chief Complaint/Hosp Course 1. She is 3 days postop a lumbar spine surgery. She is doing well . 2. Nausea and vomiting have resolved 3[place] [id number] yesterday . She has no obvious evidence of infection. elevated WBC is due to dexamethasone given at the time of surgery . 4. Continue current medication. Physical therapy as tolerated. Problems: Consultation Date/Type/Reason Admit Date/Time Oct 11, 2016 at 05:12 Type of Consultation: medicine 24 HR Interval Summary Constitutional: improved, no complaints Exam/Review of Systems Vital Signs Vitals Vital Signs Date Time Temp Pulse Resp B/P Pulse Ox O2 Delivery O2 Flow Rate FiO2 10/14/16 07:56 98.2 62 18 118/58 93 10/13/16 20:30 Room Air 10/12/16 05:10 2.0 Intake and Output 10/13/16 10/13/16 10/14/16 15:00 23:00 07:00 Intake Total 1480 ml 960 ml Output Total 1200 ml Balance 280 ml 960 ml Exam Constitutional: alert, oriented, well developed Respiratory: clear to auscultation, normal air movement Cardiovascular: regular rate and rhythm Gastrointestinal: non-tender, soft Musculoskeletal: nl extremities to inspection Results Result Diagram: 10/13/16 0437 10/13/16 0437 Medications Medications Current Medications Dextrose/Sodium Chloride (D5-1/2ns) 1,000 ml @ 100 mls/hr Q10H IV Last administered on 10/11/16 22:16; Admin Dose 100 MLS/HR; Start 10/11/16 at 10:20 Zolpidem Tartrate (Ambien) 5 mg HS PRN PO INSOMNIA; Start 10/11/16 at 10:30 Prochlorperazine (Compazine) 10 mg Q4H PRN PO NAUSEA AND/OR VOMITING; Start at 10:30 Trimethobenzamide HCl (Tigan) 200 mg Q4H PRN IM NAUSEA AND/OR VOMITING Last administered on 10/13/16 18:35; Admin Dose 200 MG; Start 10/11/16 at 10:30 Ondansetron HCl (Zofran Inj) 4 mg Q6H PRN IV NAUSEA AND/OR VOMITING Last administered on 10/13/16 09:56; Admin Dose 4 MG; Start 10/11/16 at 10:30 Al Hydrox/Mg Hydrox/Simethicone (Mag-Al Plus) 15 ml Q4H PRN PO CONSTIPATION; Start 10/11/16 at 10:30 Docusate Sodium (Colace) 100 mg BID PO Last administered on 10/14/16 08:34; Admin Dose 100 MG; Start 10/12/16 at 09:00 Acetaminophen (Tylenol Tab) 650 mg Q4H PRN PO TEMP GREATER THAN 101F OR SZYMANSKI; Start 10/11/16 at 10:30 Ascorbic Acid (Vitamin C) 1,000 mg BID PO Last administered on 10/14/16 08:34 ; Admin Dose 1,000 MG; Start 10/12/16 at 09:00 Ferrous Sulfate (Ferrous Sulfate (Ec)) 325 mg TID PO Last administered on 08:35; Admin Dose 325 MG; Start 10/12/16 at 09:00 Ranitidine HCl (Zantac) 150 mg BID PO Last administered on 10/14/16 08:37; Admin Dose 150 MG; Start 10/11/16 at 21:00 Diazepam (Valium) 5 mg Q4H PRN PO MUSCLE SPASMS; Start 10/11/16 at 10:30 Diazepam (Valium) 5 mg Q4H PRN IM MUSCLE SPASMS; Start 10/11/16 at 10:30 Phenol (Cepastat Lozenge) 1 lozenge PRN PRN MT SORE THROAT; Start 10/11/16 at 10:30 Bethanechol Chloride (Urecholine) 25 mg PRN PRN PO UNABLE TO VOID Last administered on 10/12/16 11:27; Admin Dose 25 MG; Start 10/11/16 at 10:30 Diphenhydramine HCl (Benadryl) 50 mg Q6H PRN PO PRURITUS; Start 10/11/16 at 10: 30 Hydromorphone HCl (Dilaudid MEDICAL [employer]LECTIONS) Q4PCA IV Last administered on 10/11/16 10:38 ; Admin Dose 6 MG; Start 10/11/16 at 10:30 Naloxone HCl (Narcan) 0.2 mg Q2M PRN IV RR 8 BREATHS/MIN OR LESS; Start at 10:30 Gabapentin (Neurontin) 300 mg HS PO Last administered on 10/13/16 21:09; Admin Dose 300 MG; Start 10/11/16 at 21:00 Trazodone HCl (Desyrel) 50 mg QHS PO Last administered on 10/13/16 21:11; Admin Dose 50 MG; Start 10/11/16 at 21:00 Doxycycline Hyclate (Vibramycin) 50 mg DAILY PO Last administered on 10/14/16 08:35; Admin Dose 50 MG; Start 10/12/16 at 09:00 Atorvastatin Calcium (Lipitor) 20 mg DAILY@21 PO Last administered on 21:09; Admin Dose 20 MG; Start 10/11/16 at 21:00 Bisoprolol Fumarate/HCTZ (Ziac (2.5/6.25)) 1 tab DAILY PO Last administered on 10/14/16 08:37; Admin Dose 1 TAB; Start 10/11/16 at 19:30 Bethanechol Chloride (Urecholine) 25 mg PRN PRN PO UNABLE TO VOID; Start at 08:00 Oxycodone/ Acetaminophen (Percocet (5/ 325)) 1 tab Q4H PRN PO PAIN Last administered on 10/13/16 18:25; Admin Dose 1 TAB; Start 10/12/16 at 12:30 Oxycodone/ Acetaminophen (Endocet (10/ 325)) 1 tab Q4H PRN PO PAIN Last administered on 10/14/16 06:32; Admin Dose 1 TAB; Start 10/12/16 at 12:30 MITCHELL WALLS MD Oct 14, 2016 09:07
[2016-10-14] MEDS ORDERED: NA PHOSPHATE/BIPHOS 133 ML ENEMA PR ONE (12:00)
[2016-10-14] MEDS ORDERED: BISACODYL 10 MG SUPP PR ONE (12:00)
[2016-10-14 14:30] VITALS: BP 117/56; RESP 18
--- NOTE | 2016-10-14 20:27 | PDOCDIS ---
Discharge Instructions CONDITION Patient Condition: Good HOME CARE INSTRUCTIONS: Diet Instructions: RegularSpecial Diet: REGULAR ACTIVITY: Activity Restrictions: Slowly Increase Activity Rest between Activity Avoid heavy lifting Do not Drive Do not operate Machinery Do not operate Power Tool Avoid Heavy Housework Bathing Restrictions: Shower FOLLOW UP/APPOINTMENTS Follow-up Plan MITCHELL Mckenzie MD Oct 14, 2016 20:27
[2016-10-14] MEDS: ATORVASTATIN 20 MG TAB PO SCH (20:37)
[2016-10-14] MEDS: GABAPENTIN 300 MG CAP PO SCH (20:37)
--- NOTE | 2016-11-01 08:55 | DS ---
Date/Time of Note Date/Time of Note DATE: 11/01/16 TIME: 08:53 Discharge Summary Admission/Discharge Info Admit Date/Time Oct 11, 2016 at 05:12 Discharge Date/Time Oct 14, 2016 at 21:26 Discharge Diagnosis Lumbar spinal stenosis at L2, L3 and L4. Patient Condition: Good Hospital Course Patient was slow to progress postoperatively. Her diet was advanced as tolerated. Her pain is well controlled. Labs were improving prior to discharge. She was cleared for discharge home by physical therapy. She was discharged home in good condition on postop day #3. Home Meds Reported Medications Gabapentin* (Gabapentin*) 300 Mg Capsule, 300 MG PO HS, #60 CAP 10/11/16 Trazodone Hcl* (Trazodone Hcl*) 50 Mg Tablet, 50 MG PO QHS, #30 TAB 10/11/16 Bisoprolol Fumarate/Hctz (Bisoprolol-Hctz 2.5-6.25 mg Tb) 1 Each Tablet, 1 EACH PO DAILY, TAB 10/11/16 Simvastatin (Simvastatin) 40 Mg Tablet, 40 MG PO QHS, #30 TAB 10/11/16 Doxycycline Hyclate (Doxycycline Hyclate) 50 Mg Tablet.dr 50 MG PO DAILY 10/11/16 Follow-up Plan Follow-up with Dr. Doe in 1-2 weeks Primary Care Provider Not On Staff ELOY Mar Nov 01, 2016 08:55
== END 2016-10-14 21:26 | disposition home or self-care (01) | DRG 516 ==
LOC: L-D 14:12 → UNDOADMIN 14:12 → REC 10-11 05:12 → MS1 10-11 11:23
PROVIDERS: ADMIT Orthopaedic Surgery; ATTEND Orthopaedic Surgery
PROC: 01NB0ZZ Release Lumbar Nerve, Open Approach (ICD-10-PCS; 2016-10-11)
PROC: 0QB00ZZ Excision of Lumbar Vertebra, Open Approach (ICD-10-PCS; principal; 2016-10-11 07:00)
DX: M48.06 Spinal stenosis, lumbar region (principal); E87.1 Hypo-osmolality and hyponatremia; I10 Essential (primary) hypertension; E78.5 Hyperlipidemia, unspecified; M21.371 Foot drop, right foot; R11.2 Nausea with vomiting, unspecified; D72.829 Elevated white blood cell count, unspecified
CPT/HCPCS: 72020; 80053; 81001; 81003; 85025; 85610; 85730; 86850; 86900; 86901; 86920; 87086; 97116; 97162; 97530; J0131; J0690; J1100; J1170; J2175; J2250; J2405; J2765; J3010; J3250; J7042; J7999